=== PATIENT | female | born 1995 | race Caucasian/White ===

== ENCOUNTER → 2016-10-08 | Outpatient (CLI) | payer OTHER ==
--- NOTE | 2016-10-08 11:20 | DIAGNOSTIC IMAGING REPORT ---
EXAMINATION: RENAL ULTRASOUND CLINICAL HISTORY: UNSPECIFIED RENAL COLIC COMPARISON STUDY: None FINDINGS: The right kidney measures 10.8 cm. The left kidney measures 11.7 cm. There is no evidence of hydronephrosis. There are no renal masses. No bladder abnormalities are visualized. Bilateral ureteral jets were visualized. IMPRESSION : Normal renal ultrasound. Electronically signed by: Jhon Darby M.D. 10/08/2016 11:19 AM Dictated Date/Time: 10/08/2016 11:19 AM
== END | disposition home or self-care (01) ==
LOC: C.ULTR 10:40
PROVIDERS: ATTEND Physician Assistant
DX: N23 Unspecified renal colic (principal)